=== PATIENT | male | born 1995 | race Caucasian/White ===

== ENCOUNTER 2017-10-22 04:02 | Emergency (ER) | payer BC ==
[~2017-10-22] VITALS: Ht 188 cm; Wt 110.0 kg
[2017-10-22 04:46] LABS: CULTURE INDICATED? NO; MICROSCOPIC NOT IND
[2017-10-22] MEDS ORDERED: FAMOTIDINE 20 MG/2 ML IVP ONE (05:00)
[2017-10-22] MEDS ORDERED: ONDANSETRON ODT 4 MG PO ONE (05:00)
[2017-10-22] MEDS ORDERED: SODIUM CHLORIDE 0.9% 1,000ML IVBOLUS ONE (05:00)
[2017-10-22] MEDS ORDERED: ONDANSETRON ODT 4 MG ONE (05:05)
[2017-10-22] MEDS ORDERED: FAMOTIDINE 20 MG/2 ML ONE (05:06)
[2017-10-22 05:27] LABS: BASOPHILS # (AUTO) 0.05 x10^3/uL (0-0.1); BASOPHILS % (AUTO) 0 % (0-1); EOSINOPHILS # (AUTO) 0.37 x10^3/uL (0-0.4); EOSINOPHILS % (AUTO) 3 % (1-7); LYMPHOCYTES # (AUTO) 1.99 x10^3/uL (1-3.4); LYMPHOCYTES % (AUTO) 14 % (22-44); MD NO; MEAN CORPUSCULAR HEMOGLOBIN 29.7 pg (27.5-34.5); MEAN CORPUSCULAR HGB CONC 34.2 g/dL (33.2-36.2); MEAN CORPUSCULAR VOLUME 86.8 fL (81-97); MEAN PLATELET VOLUME 9.5 fL (7.4-10.4); MONOCYTES # (AUTO) 0.57 x10^3/uL (0.2-0.8); MONOCYTES % (AUTO) 4 % (2-9); NEUTROPHILS % (AUTO) 79 % (42-75); PLATELET COUNT 267 x10^3/uL (130-400); RED CELL DISTRIBUTION WIDTH 13.2 % (9.4-14.8)
[2017-10-22 05:28] LABS: ALBUMIN 4.3 g/dL (3.4-5.0); ANION GAP 9 mmol/L (5-15); CALCIUM 9.2 mg/dL (8.5-10.1); CHLORIDE 110 mmol/L (98-107)
[2017-10-22] MEDS ORDERED: PROMETHAZINE 25 MG/ML, 1ML ONE (05:28)
[2017-10-22] MEDS ORDERED: PROMETHAZINE 25 MG/ML, 1ML IM ONE (05:30)
[2017-10-22 05:31] LABS: ALANINE AMINOTRANSFERASE 32 U/L (12-78); ALKALINE PHOSPHATASE 86 U/L (45-117); TOTAL PROTEIN 7.8 g/dL (6.4-8.2)
[2017-10-22 05:37] VITALS: BP 134/86
== END 2017-10-22 06:22 | disposition home or self-care (01) ==
LOC: ED 06:16
DX: R11.2 Nausea with vomiting, unspecified (principal); R10.10 Upper abdominal pain, unspecified
CPT/HCPCS: 36415; 80053; 81003; 83690; 85025; 96361; 96372; 96374; 99284; J2550; J7030; Q0162; S0028